=== PATIENT | male | born 1960 | race Caucasian/White ===

== ENCOUNTER 2017-03-06 13:06 | Day surgery (SDC) | payer OTHER ==
[~2017-03-06] VITALS: Ht 170.2 cm; Wt 116.2 kg
[2017-03-06] VITALS (12 sets, daily range): BP systolic 121–148; BP diastolic 67–86; PULSE 78–84; RESP 16–27; Ht 170.2 cm; Wt 116.2 kg
--- NOTE | 2017-03-06 13:19 | HPN ---
Date/Time of Note Date/Time of Note DATE: 03/06/17 TIME: 13:18 Interval H&P Admission Note Pt. seen H&P reviewed: No system changes PATRICIA ALFREDO MD Mar 06, 2017 13:19
[2017-03-06] MEDS ORDERED: morphine 10 MG INJ IV PRN (13:30)
[2017-03-06] MEDS ORDERED: morphine 2 MG INJ IV PRN (13:30)
[2017-03-06] MEDS ORDERED: AMLO5TAB4 PO (13:55)
[2017-03-06] MEDS ORDERED: ALLO300T2 PO (13:56)
[2017-03-06] MEDS ORDERED: NAPR-688 PO (14:05)
[2017-03-06] MEDS ORDERED: MTF1000T PO (14:06)
[2017-03-06] MEDS ORDERED: SIMV20TA PO (14:08)
[2017-03-06] MEDS ORDERED: LOSA50TA6 PO (14:08)
[2017-03-06] MEDS ORDERED: BUPIVACAINE 0.5% (SDV) 30 ML INJ ONE (15:59)
[2017-03-06] MEDS ORDERED: ROPIVACAINE 0.5 % 30 ML VIAL ONE (15:59)
[2017-03-06] MEDS ORDERED: NEOMYC/POLYMYX/BACIT 30 GM OINT ONE (16:00)
[2017-03-06] MEDS ORDERED: FENTAnyl 50 MCG/ML VIAL ONE ×2 (16:06→18:00)
[2017-03-06] MEDS ORDERED: MIDAZOLAM 1 MG/ML 2 ML INJ ONE (16:06)
[2017-03-06] MEDS ORDERED: PROPOFOL 40 ML ONE (16:06)
[2017-03-06] MEDS ORDERED: PHENYLephrine (100 MCG/ML) 5ML SYG ONE (17:20)
[2017-03-06] MEDS ORDERED: CEFAZOLIN 1 GM INJ ONE (17:20)
[2017-03-06] MEDS ORDERED: KETOROLAC 30 MG INJ ONE (17:34)
[2017-03-06] MEDS ORDERED: ONDANSETRON 4 MG INJ ONE (17:34)
[2017-03-06] MEDS ORDERED: METOCLOPRAMIDE 10 MG INJ ONE (17:34)
[2017-03-06] MEDS ORDERED: DEXAMETHASONE 4 MG/ML 1 ML INJ ONE (17:34)
[2017-03-06] MEDS ORDERED: FAMOTIDINE 20 MG INJ ONE (17:34)
[2017-03-06] MEDS ORDERED: LABETALOL HCL 20MG INJ IV PRN (19:00)
[2017-03-06] MEDS ORDERED: EPHEDrine SULFATE 50 MG/5 ML SYG IV PRN (19:00)
[2017-03-06] MEDS ORDERED: DIPHENHYDRAMINE 50 MG INJ IV PRN (19:00)
[2017-03-06] MEDS ORDERED: OXYCODONE/ACETAMINOPHEN (5/325) TAB PO PRN ×2 (19:00)
[2017-03-06] MEDS ORDERED: MEPERIDINE 25 MG INJ IV PRN (19:00)
[2017-03-06] MEDS ORDERED: ONDANSETRON 4 MG INJ IV PRN (19:00)
[2017-03-06] MEDS ORDERED: HYDROmorphONE (0.2 MG/ML) 10ML SYG IV PRN ×3 (19:00)
[2017-03-06] MEDS ORDERED: morphine (1 MG/ML) 10ML SYRINGE IV PRN ×3 (19:00)
[2017-03-06] MEDS ORDERED: METOCLOPRAMIDE 10 MG INJ IV PRN (19:00)
[2017-03-06] MEDS ORDERED: hydrALAzine 20 MG INJ IV PRN (19:00)
--- NOTE | 2017-03-06 19:38 | OPR ---
Date/Time of Note Date/Time of Note DATE: 03/06/17 TIME: 19:35 Operative Report Free Text/Dictation DATE OF PROCEDURE: 03/06/2017 SURGEON: Robert Alfredo M.D. INTERNET ASSESSOR: none PREOP DIAGNOSES: 1. Left knee pain 2. 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 Left knee posterior horn medial meniscal tear POSTOP DIAGNOSES: 1. Left knee pain 2. 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 Left knee midbody and posterior horn medial meniscal tear 4. Left knee medial compartment grade IV Chondromalacia PROCEDURE: 1. Surgical arthroscopy of the Left knee with partial medial meniscectomy 2. Chondroplasty of the medial and lateral and patella femoral compartments 3. Partial synovectomy TOURNIQUET TIME: 29 MINUTES AT 250 mmHg EBL: Less than 20 ML COMPLICATIONS: None CONDITION UPON LEAVING THE OPERATING ROOM: Stable to PACU ANESTHESIA TYPE: General, local INDICATIONS: Patient is a 57-year-old male with ongoing Left knee pain. He has complained of having clicking and locking symptoms over the medial aspect of his knee with no relief with PT or anti-inflammatory. Patient has decided to proceed with surgery. Patient is aware that he has extensive OA to the knee and the goal with this surgery is help achieve better range and motion and help prolong need for tka. RISK NOTE: Patient was explained the risks and benefits of the surgery in the patients tlingit & ha[place] language, including not limited to infection, bleeding, loss of limb, loss of life, need for future surgery, risk of anesthesia, risk of injury to the blood vessels and nerves, ligaments or tendons, and risk of deep vein thrombosis. Patient understood these risks and wished to proceed with the surgery. OPERATIVE NOTE: The correct operative site was noted and marked in the preoperative holding area. The patient was then brought back into the operative theater, placed supine on the operative table. Left knee was examined under anesthesia. Range of motion was 0-120. There is no varus or valgus or anterior posterior instability. There is crepitus noticed at the patellofemoral joint. Tourniquet was then placed on the operative extremity thigh non-sterilely. Patient was then given preoperative antibiotics and then prepped and draped in normal sterile fashion. A timeout was taken and all parties in the room agreed it was the correct patient, correct extremity and correct procedure. 10 cc of 0.25% Marcaine without epi was injected into the anteriorlateral and anteriormedial portal sites prior to incision. Standard anterior lateral portal was created and the knee joint was entered with a blunt tipped trocar, followed by 30 arthroscope. Inflow was achieved with a pump and the pressure maintained at approximately 50 mmHg. A routine arthroscopic surgery was performed. Suprapatella pouch was unremarkable. The undersurface of the patella showed advanced grade 1 -2 chondromalacia The medial and lateral gutters were visualized. There were no loose bodies seen. There is an inflamed hypertrophic plica noted in the anterior and superior medial aspect of the knee. The popliteus hiatus was entered and was normal. Lateral compartment was entered and grade 1 chondromalacia was seen on the lateral tibial plateau and femoral condyle. Scope was then brought into the intercondylar notch and an anteromedial portal was made. Shaver was brought into the knee and small amount of fat pad and scar tissue was initially gently debrided. The anterior cruciate ligament was intact and probed. The knee was brought into a valgus position and the medial compartment was entered. The articular surface of the medial femoral condyle and medial tibial plateau revealed diffuse grade 4 chondromalacia. There was a degenerative posterior horn medial meniscus tear extending to the midbody that was associated with a radial tear that visualized and debrided gently with a motorized shaver and basket forceps, the posterior horn demonstrated a degenerative tear and fibrillation pattern. The motorized shaver and basket biters were used to smooth the remaining meniscal rim, with care to maintain the peripheral meniscal rim. A probe was introduced and this was carefully probed and was found to be stable. Chondroplasty was then carried out along the weightbearing aspect of the medial femoral condyle, medial tibial plateau, taking care to remove only loose articular cartilage debris and preserve functional articular cartilage. The lateral compartment was reentered and the loose chondral debris was debrided with motorized shaver. Attention was then directed back to the patella femoral joint and a chondroplasty was carried out along the weightbearing aspect of the trochlea and undersurface of the patella to again remove loose debris and maintain functional active articular cartilage. The knee was then irrigated with additional 2 L of lactated Ringers solution. Excess fluid was then drained. Range of motion was then attempted showing 0- 125 degrees of motion The portal sites were closed with 4-0 Monocryl and Steri-Strips and dressed with Xeroform and triple antibiotic ointment. The knee was then injected with 20 cc of 0.5% plain ropivacaine. A dry sterile dressing was then applied followed by a bulky soft bandage in a thigh-high Roge stocking. At the completion of the surgery patient had palpable pulses, soft arms and brisk cap refill. The patient tolerated the procedure well and was taken to the PACU without any complications. All sponge and needle counts were correct. Patient will begin pain medicine and 48 hours of antibiotics as well as aspirin 81 mg for the duration of 4 weeks postoperatively ROBERT ALFREDO MD Mar 06, 2017 19:38
== END 2017-03-06 20:10 | disposition home or self-care (01) ==
LOC: SDS 13:06
PROVIDERS: ATTEND Orthopaedic Surgery
DX: M23.222 Derangement of posterior horn of medial meniscus due to old tear or injury, left knee (principal); M22.42 Chondromalacia patellae, left knee; E78.5 Hyperlipidemia, unspecified; I10 Essential (primary) hypertension; E11.9 Type 2 diabetes mellitus without complications
CPT/HCPCS: 29881; 82962; J0690; J1100; J1885; J2250; J2370; J2405; J2765; J2795; J3010; Z7512; Z7610